=== PATIENT | male | born 1950 | race Caucasian/White ===

== ENCOUNTER 2024-01-29 14:45 | Emergency (ER) | payer OTHER, MEDICARE ==
[~2024-01-29] VITALS: Ht 175.2 cm; Wt 117.9 kg
[2024-01-29 15:13] LABS: BASO % 0.8 % (0.0-1.0); EOS # 0.2 10*3/uL (0.0-0.4); EOS % 3.3 % (1.0-4.0); HEMATOCRIT 42.9 % (42.0-52.0); LYMPH # 1.2 10*3/uL (1.3-4.4); LYMPH % 22.2 % (27.0-41.0); MEAN CELL VOLUME 89.2 fl (80.0-94.0); MEAN CORPUSCULAR HGB 28.9 pg (27.0-31.0); MEAN CORPUSCULAR HGB CONC 32.4 g/dl (33.0-37.0); MEAN PLATELET VOLUME 8.6 fl (9.6-12.3); MONO # 0.6 10*3/uL (0.1-1.0); MONO % 12.3 % (3.0-9.0); NEUT # 3.2 10*3/uL (2.3-7.9); PLATELET COUNT AUTOMATED 201 10*3/uL (130-400); RED BLOOD COUNT 4.81 10*6/uL (4.50-5.90); RED CELL DISTRI WIDTH 13.2 % (0-14.5); WHITE BLOOD COUNT 5.2 10*3/uL (4.8-10.8)
[2024-01-29] MEDS ORDERED: LORazepam 2 MG/ML VIAL ONE (15:21)
[2024-01-29 15:30] LABS: BUN 15 mg/dl (9-23); CHLORIDE 105 mmol/L (98-107); CPK 117 U/L (34-171); POTASSIUM 3.6 mmol/L (3.4-5.1)
[2024-01-29] MEDS ORDERED: LEVETIRACETAM IV ONE (15:30)
[2024-01-29] MEDS ORDERED: LORazepam 2 MG/ML VIAL IV ONE ×2 (15:30)
[2024-01-29] MEDS ORDERED: SODIUM CHLORIDE 0.9% IV ONE (15:30)
[2024-02-02] MEDS ORDERED: NEURONTIN300 MG PO (14:23)
[2024-02-02] MEDS ORDERED: VITAMIN D325 MCG PO (14:24)
[2024-02-02] MEDS ORDERED: B12 ACTIVE1000 MCG PO (14:25)
[2024-02-02] MEDS ORDERED: LOSARTAN POTASS25 M1 PO (14:26)
[2024-02-02] MEDS ORDERED: PLAQUENIL200 MG PO (14:27)
[2024-02-02] MEDS ORDERED: BISOPROLOL FUMAR5 MG PO (14:28)
[2024-02-02] MEDS ORDERED: FLOMAX0.4 MG PO (14:29)
[2024-02-02] MEDS ORDERED: ZETIA10 MG PO (14:32)
[2024-02-02] MEDS ORDERED: ASPIRIN81 M1 PO (14:33)
[2024-02-02] MEDS ORDERED: OMEPRAZOLE MAGN20 MG PO (14:34)
[2024-02-02] MEDS ORDERED: LIPITOR80 MG PO (14:34)
[2024-02-02] MEDS ORDERED: SENNA8.6 MG PO (14:35)
[2024-02-02] MEDS ORDERED: PROAIR RESPICL90 MCG INH (14:35)
[2024-02-02] MEDS ORDERED: KEPPRA750 MG PO (15:24)
[2024-02-05] MEDS ORDERED: AMOX-CLAV 875-1 EACH PO (08:32)
[2024-02-05] MEDS ORDERED: PHENAZOPYRIDIN100 M1 PO (08:33)
== END 2024-01-29 20:00 | disposition short-term general hospital (02) ==
LOC: ED 14:45
PROVIDERS: Physician Assistant Medical
DX: D49.6 Neoplasm of unspecified behavior of brain (principal); G40.901 Epilepsy, unspecified, not intractable, with status epilepticus; I50.9 Heart failure, unspecified; I25.10 Atherosclerotic heart disease of native coronary artery without angina pectoris; I10 Essential (primary) hypertension; Z91.040 Latex allergy status; Z88.8 Allergy status to other drugs, medicaments and biological substances

== ENCOUNTER 2024-02-01 20:48 | Emergency (ER) | payer OTHER, MEDICARE ==
[~2024-02-01] VITALS: Ht 177.8 cm; Wt 82.6 kg
[2024-02-01] MEDS ORDERED: LEVETIRACETAM 250 MG TAB PO ONE (21:35)
[2024-02-01 21:44] LABS: HEMATOCRIT 41.8 % (42.0-52.0); MEAN CELL VOLUME 88.6 fl (80.0-94.0); MEAN CORPUSCULAR HGB 28.8 pg (27.0-31.0); MEAN CORPUSCULAR HGB CONC 32.5 g/dl (33.0-37.0); MEAN PLATELET VOLUME 8.8 fl (9.6-12.3); PLATELET COUNT AUTOMATED 198 10*3/uL (130-400); RED BLOOD COUNT 4.72 10*6/uL (4.50-5.90); RED CELL DISTRI WIDTH 13.5 % (0-14.5); WHITE BLOOD COUNT 11.7 10*3/uL (4.8-10.8)
[2024-02-01 21:46] LABS: MANUAL DIFF REFLEX YES
[2024-02-01 22:05] LABS: ALKALINE PHOSPHATASE 88 U/L (46-116); BUN 18 mg/dl (9-23); CHLORIDE 102 mmol/L (98-107); POTASSIUM 4.1 mmol/L (3.4-5.1); SGPT/ALT 22 U/L (5-49); TOTAL PROTEIN 6.6 gm/dL (6.0-8.0)
[2024-02-01 22:06] LABS: TOTAL CELLS COUNTED 100 #CELLS
[2024-02-01 22:07] LABS: BURR CELLS FEW; PLATELET SUFFICIENCY NORMAL (NORMAL); POLYCHROMASIA SLIGHT
[2024-02-01 22:15] LABS: BILIRUBIN Negative (Negative); BLOOD Trace-Lysed (Negative); CLARITY Cloudy (Clear); COLOR Yellow (Yellow); GLUCOSE Negative (Negative); KETONE 2+ (Negative); LEUKO ESTERASE 2+ (Negative); NITRITE Positive (Negative); SPECIFIC GRAVITY 1.025 (1.001-1.030)
[2024-02-01 22:31] LABS: BACTERIA 3+; WBC 41-50 wbc/hpf (0-5)
[2024-02-01] MEDS ORDERED: Ciprofloxacin Hydrochloride 500 MG TAB PO ONE (22:40)
[2024-02-01] MEDS ORDERED: CIPRO500 MG PO (22:47)
[2024-02-02] MEDS ORDERED: NEURONTIN300 MG PO (14:23)
[2024-02-02] MEDS ORDERED: VITAMIN D325 MCG PO (14:24)
[2024-02-02] MEDS ORDERED: B12 ACTIVE1000 MCG PO (14:25)
[2024-02-02] MEDS ORDERED: LOSARTAN POTASS25 M1 PO (14:26)
[2024-02-02] MEDS ORDERED: PLAQUENIL200 MG PO (14:27)
[2024-02-02] MEDS ORDERED: BISOPROLOL FUMAR5 MG PO (14:28)
[2024-02-02] MEDS ORDERED: FLOMAX0.4 MG PO (14:29)
[2024-02-02] MEDS ORDERED: ZETIA10 MG PO (14:32)
[2024-02-02] MEDS ORDERED: ASPIRIN81 M1 PO (14:33)
[2024-02-02] MEDS ORDERED: LIPITOR80 MG PO (14:34)
[2024-02-02] MEDS ORDERED: OMEPRAZOLE MAGN20 MG PO (14:34)
[2024-02-02] MEDS ORDERED: SENNA8.6 MG PO (14:35)
[2024-02-02] MEDS ORDERED: PROAIR RESPICL90 MCG INH (14:35)
[2024-02-02] MEDS ORDERED: KEPPRA750 MG PO (15:24)
== END 2024-02-01 23:25 | disposition home or self-care (01) ==
LOC: ED 20:48
PROVIDERS: Internal Medicine
DX: N39.0 Urinary tract infection, site not specified (principal); I12.9 Hypertensive chronic kidney disease with stage 1 through stage 4 chronic kidney disease, or unspecified chronic kidney disease; N18.31 Chronic kidney disease, stage 3a; I25.10 Atherosclerotic heart disease of native coronary artery without angina pectoris; Z88.8 Allergy status to other drugs, medicaments and biological substances; Z91.040 Latex allergy status